=== PATIENT | male | born 1975 | race Caucasian/White ===

== ENCOUNTER 2017-06-11 11:18 | Emergency (ER) | payer MEDICARE ==
[2017-06-11] MEDS ORDERED: Sodium Chloride 0.9% 1000 ML 1,000 ML ONE (11:37)
[2017-06-11] MEDS ORDERED: Lactated Ringers 1,000 ML IV ONE ×5 (11:37→13:51)
[2017-06-11] MEDS ORDERED: Sodium Chloride 0.9% 1000 ML 1,000 ML IV STA (11:41)
--- NOTE | 2017-06-11 11:50 | ERPHSYRPT ---
- History of Present Illness Time Seen by Provider: 06/11/17 11:23 Source: patient, family () Physician History: CC: vomiting Hx: 42 y/o IDDM pt of Dr Jaiden Juarez. He has couple day hx of vomiting. No abd pain or diarrhea. No fever. Flu like symptoms last week. He has chest pain after vomiting. No DKA for several years. Sugars have been running high. Vomiting is severe. He has malaise. Severity: severe Allergies/Adverse Reactions: No Known Drug Allergies Allergy (Unverified 06/11/17 11:48) - Review of Systems Constitutional: Fatigue, Malaise, Weakness, No Fever, No Chills Eyes: No Symptoms Respiratory: No Cough, No Dyspnea Cardiac: Chest Pain, No Syncope Abdominal/Gastrointestinal: Nausea, Vomiting, No Abdominal Pain, No Diarrhea Genitourinary Symptoms: No Dysuria Musculoskeletal: Back Pain (chronic) Skin: No Rash Neurological: No Headache All Other Systems: Reviewed and Negative - Past Medical History Pertinent Past Medical History: Yes Endocrine Medical History: Diabetes Type I Other Medical History: Chronic Back Pain. Diabetic Neuropathy - Past Surgical History Past Surgical History: Yes Musculoskeletal: Other (Back) - Social History Patient Lives Alone: No (here with ) - Nursing Vital Signs Nursing Vital Signs: Initial Vital Signs Temperature 97.8 F 06/11/17 11:23 Pulse Rate 126 H 06/11/17 11:23 Respiratory Rate 22 06/11/17 11:23 Blood Pressure 151/84 06/11/17 11:23 O2 Sat by Pulse Oximetry 100 06/11/17 11:23 Pain Scale Pain Intensity 2 - Physical Exam General Appearance: alert, other (ill appearing with Kussmaul breathing) Ears, Nose, Throat Exam: dry mucous membranes Neck Exam: normal inspection, non-tender, supple Respiratory Exam: normal breath sounds Cardiovascular Exam: regular rate/rhythm, tachycardia, No murmur Gastrointestinal/Abdomen Exam: soft, No tenderness, No distention, No mass, No guarding Male Genitalia Exam: normal genitalia, No hernia, No testicular tenderness Back Exam: normal inspection Extremity Exam: normal inspection, normal range of motion, No calf tenderness, No pedal edema Neurologic Exam: alert, oriented x 3, cooperative, scale mechanic II-XII nml as tested, sensation nml, No motor deficits Skin Exam: warm, dry, pale, No rash SpO2 Interpretation: normal SpO2: 100 Oxygen Delivery: Room Air - Course Nursing assessment & vital signs reviewed: Yes EKG Interpreted by Me: RATE (131), Sinus Tach, NORMAL AXIS, Other (peaked T waves, Nonspecific changes) - Radiology Exams cxr X-ray Interpretation: Teleradiologist Report, Negative Ordered Tests: Active Orders 24 hr Category Date Time Status ACCUCHECK [Accucheck] STAT Care 06/11/17 13:12 Active Gear Shaver Set Up Operator STAT Care 06/11/17 11:41 Active Clean Catch Urine Specimen STAT Care 06/11/17 11:41 Active EKG-ER Only STAT Care 06/11/17 11:41 Active IV Insertion STAT Care 06/11/17 11:41 Active IV Insertion-2nd Peripheral STAT Care 06/11/17 11:41 Active Pulse Oximetry (ED) STAT Care 06/11/17 11:41 Active CHEST 1 VIEW (PORTABLE) Stat Exams 06/11/17 11:42 Completed BLOOD CULTURE Stat Lab 06/11/17 12:15 Received CBC W DIFF Stat Lab 06/11/17 11:40 Completed CMP Stat Lab 06/11/17 11:40 Completed Glucose,Critical Care Urgent Lab 06/11/17 11:41 Results Lactic Acid Urgent Lab 06/11/17 11:41 Results MAGNESIUM Stat Lab 06/11/17 11:40 Completed Manual Differential NC Stat Lab 06/11/17 11:40 Completed TROPONIN Q3H Lab 06/11/17 11:40 Completed TROPONIN Q3H Lab 06/11/17 14:45 Ordered TROPONIN Q3H Lab 06/11/17 17:45 Ordered TROPONIN Q3H Lab 06/11/17 20:45 Ordered TROPONIN Q3H Lab 06/11/17 23:45 Ordered UA W/ MICROSCOPIC Stat Lab 06/11/17 11:41 Completed VENOUS BLOOD GAS Urgent Lab 06/11/17 11:41 Results Medication Summary Generic Name Dose Route Start Last Admin Trade Name Freq PRN Reason Stop Dose Admin Insulin Human Regular 100 101 mls @ 8.08 mls/hr 06/11/17 12:00 06/11/17 12:07 units/ Sodium Chloride IV 07/11/17 11:59 8 units/hr .[id number] JIMBO 8.08 mls/hr 8 UNITS/HR Administration Lactated Ringer's 1,000 mls @ 150 mls/hr 06/11/17 13:30 Lactated Ringers IV 07/11/17 13:29 .[id number] JIMBO Discontinued Medications Generic Name Dose Route Start Last Admin Trade Name Marquita PRN Reason Stop Dose Admin Hydromorphone HCl 0.5 mg 06/11/17 11:56 06/11/17 12:01 Hydromorphone 1 Mg/Ml Ampule IV 06/11/17 11:57 0.5 mg STAT ONE Administration Hydromorphone HCl Confirm 06/11/17 12:00 Hydromorphone 1 Mg/Ml Ampule Administered 06/11/17 12:01 Dose 1 mg .ROUTE .STK-MED ONE Sodium Chloride Confirm 06/11/17 11:37 Sodium Chloride 0.9% 1000 Ml Administered 06/11/17 11:38 Dose 1,000 mls @ ud .ROUTE .STK-MED ONE Lactated Ringer's Confirm 06/11/17 11:37 Lactated Ringers Administered 06/11/17 11:38 Dose 1,000 mls @ ud IV .STK-MED ONE Lactated Ringer's 1,000 mls @ 999 mls/hr 06/11/17 11:42 06/11/17 12:01 Lactated Ringers IV 06/11/17 12:42 999 mls/hr .Q1H1M ONE Administration Sodium Chloride 1,000 mls @ 999 mls/hr 06/11/17 11:41 06/11/17 12:01 Sodium Chloride 0.9% 1000 Ml IV 06/11/17 12:41 999 mls/hr .Q1H1M STA Administration Lactated Ringer's 1,000 mls @ 999 mls/hr 06/11/17 11:54 06/11/17 12:22 Lactated Ringers IV 06/11/17 12:54 999 mls/hr .Q1H1M ONE Administration Ceftriaxone Sodium/Dextrose 1 g in 50 mls @ 100 mls/hr 06/11/17 11:54 12:00 Rocephin 1 Gm-D5w 50 Ml Bag IV 06/11/17 12:23 100 mls/hr STAT STA Administration Lactated Ringer's Confirm 06/11/17 12:00 Lactated Ringers Administered 06/11/17 12:01 Dose 1,000 mls @ ud IV .STK-MED ONE Ceftriaxone Sodium/Dextrose Confirm 06/11/17 12:00 Rocephin 1 Gm-D5w 50 Ml Bag Administered 06/11/17 12:01 Dose 1 g in 50 mls @ ud IV .STK-MED ONE Lab/Rad Data: Laboratory Result Diagrams 06/11/17 11:40 06/11/17 11:40 Laboratory Results 06/11/17 06/11/17 06/11/17 Range/Units 11:41 11:41 11:40 WBC (4.0-10.5) K/mm3 RBC (4.1-5.6) M/mm3 Hgb (12.5-18.0) gm/dl Hct (42-50) % MCV (78-100) fl MCH (26-32) pg MCHC (32-36) g/dl RDW (11.5-14.0) % Plt Count (150-450) K/mm3 MPV (6-9.5) fl Segmented Neutrophils (36.-66.) % Lymphocytes (Manual) (24-44) % Monocytes (Manual) (0.0-12.0) % Eosinophils (Manual) (0.00-3.0) % Differential Comment Atypical Lymphocytes % Platelet Estimate (NORMAL) Poikilocytosis VBG pH 7.02 L* (7.32-7.42) VBG pCO2 at Pat Temp 38 L (42-55) mm/Hg VBG HCO3 9.8 L* (22-28) meq/L VBG O2 Sat (Sarah) 36.2 L (95-100) VBG Base Excess -20.7 L (-2.0-2.0) VBG Hemoglobin 17.2 VBG Carboxyhemoglobin 1.5 (0.0-6.9) % T HGB POC Potassium 6.1 H* (3.5-5.1) Sodium (136-145) mEq/L Potassium (3.5-5.1) mEq/L Chloride (98-107) mEq/L Carbon Dioxide (21-32) mEq/L Anion Gap (5-15) MEQ/L BUN (9-20) mg/dL Creatinine (0.55-1.30) mg/dl Estimated GFR ML/MIN Glucose 668 H* (70-110) MG/DL Lactic Acid 5.1 H (0.4-2.0) Calcium (8.5-10.1) mg/dL Magnesium (1.8-2.4) mg/dL Total Bilirubin (0.2-1.0) mg/dL AST (15-37) U/L ALT (12-78) U/L Alkaline Phosphatase (46-116) U/L Troponin I < 0.017 (0.000-0.056) ng/ml Serum Total Protein (6.4-8.2) gm/dL Albumin (3.4-5.0) g/dL Ur Collection Type VOID Urine Color YELLOW (YELLOW) Urine Appearance CLEAR (CLEAR) Urine pH 5.0 (5-6) Ur Specific [place] 1.025 (1.005-1.025) Urine Protein TRACE (Negative) Urine Ketones LARGE (NEGATIVE) Urine Blood NEGATIVE (0-5) Robert/ul Urine Nitrite NEGATIVE (NEGATIVE) Urine Bilirubin NEGATIVE (NEGATIVE) Urine Urobilinogen NORMAL (0-1) mg/dL Ur Leukocyte Esterase NEGATIVE (NEGATIVE) Urine Microscopic RBC 0-2 (0-2) /HPF Ur Epithelial Cells RARE (FEW) /HPF Urine Bacteria RARE (NEGATIVE) /HPF Urine Culture Reflexed NO (NO) Urine Glucose 1000 (NEGATIVE) mg/dL Specimen Received 06/11/17 1145 06/11/17 06/11/17 Range/Units 11:40 11:40 WBC 23.4 H (4.0-10.5) K/mm3 RBC 5.60 (4.1-5.6) M/mm3 Hgb 16.9 (12.5-18.0) gm/dl Hct 49.6 (42-50) % MCV 88.6 (78-100) fl MCH 30.2 (26-32) pg MCHC 34.1 (32-36) g/dl RDW 13.4 (11.5-14.0) % Plt Count 551 H (150-450) K/mm3 MPV 10.2 H (6-9.5) fl Segmented Neutrophils 81 H (36.-66.) % Lymphocytes (Manual) 14 L (24-44) % Monocytes (Manual) 2 (0.0-12.0) % Eosinophils (Manual) 1 (0.00-3.0) % Differential Comment ABNORMAL Atypical Lymphocytes 2 % Platelet Estimate INCREASED (NORMAL) Poikilocytosis 1+ VBG pH (7.32-7.42) VBG pCO2 at Pat Temp (42-55) mm/Hg VBG HCO3 (22-28) meq/L VBG O2 Sat (Sarah) (95-100) VBG Base Excess (-2.0-2.0) VBG Hemoglobin VBG Carboxyhemoglobin (0.0-6.9) % T HGB POC Potassium (3.5-5.1) Sodium 131 L (136-145) mEq/L Potassium 5.4 H (3.5-5.1) mEq/L Chloride 90 L (98-107) mEq/L Carbon Dioxide 9.8 L* (21-32) mEq/L Anion Gap 36.5 H (5-15) MEQ/L BUN 20 (9-20) mg/dL Creatinine 2.01 H (0.55-1.30) mg/dl Estimated GFR 39 ML/MIN Glucose 615 H* (70-110) MG/DL Lactic Acid (0.4-2.0) Calcium 10.7 H (8.5-10.1) mg/dL Magnesium 1.7 L (1.8-2.4) mg/dL Total Bilirubin 0.60 (0.2-1.0) mg/dL AST 22 (15-37) U/L ALT 45 (12-78) U/L Alkaline Phosphatase 145 H (46-116) U/L Troponin I (0.000-0.056) ng/ml Serum Total Protein 8.9 H (6.4-8.2) gm/dL Albumin 5.0 (3.4-5.0) g/dL Ur Collection Type Urine Color (YELLOW) Urine Appearance (CLEAR) Urine pH (5-6) Ur Specific [place] (1.005-1.025) Urine Protein (Negative) Urine Ketones (NEGATIVE) Urine Blood (0-5) Robert/ul Urine Nitrite (NEGATIVE) Urine Bilirubin (NEGATIVE) Urine Urobilinogen (0-1) mg/dL Ur Leukocyte Esterase (NEGATIVE) Urine Microscopic RBC (0-2) /HPF Ur Epithelial Cells (FEW) /HPF Urine Bacteria (NEGATIVE) /HPF Urine Culture Reflexed (NO) Urine Glucose (NEGATIVE) mg/dL Specimen Received - Progress Progress Note: 06/11/17 11:50 He appears to have DKA. 2 PIV started. IV crystalloid bolus in progress. Labs sent. Explained DKA to pt and who understand severity of condition. 06/11/17 13:05 3L crystalloid given. Insulin gtt started. Cultures sent and rocephin coverage given. Called DR Sharpe() for admission but blood gas and lactic acid analyzer is down and those tests are not available so she advised to transfer. Pt prefers [facility] where he usually is admitted and he requested [facility] Dr Jaiden Juarez. Called [place] one call. 06/11/17 13:[address] Kramer who accepts pt in transfer to [facility]. Will recheck BMP prior to leaving for transfer. Counseled pt/family regarding: lab results, diagnosis, need for follow-up, rad results - Departure Time of Disposition: 13:31 Departure Disposition: Transfer ([place] ICU) Clinical Impression: DKA (diabetic ketoacidoses) Condition: Serious Critical Care Time: Yes Critical Care Time(excluding separately billable procedures): 30-74 minutes Referrals: JAIDEN JUAREZ [Primary Care Provider] -
[2017-06-11 11:51] LABS: Granulocyte Absolute (ANC) 17.71 (1.4-6.9); Hematocrit 49.6 % (42-50); Hemoglobin 16.9 gm/dl (12.5-18.0); Mean Cell Volume 88.6 fl (78-100); Mean Corpuscular Hemoglobin 30.2 pg (26-32); Mean Corpuscular Hgb Concent. 34.1 g/dl (32-36); Mean Platelet Volume 10.2 fl (6-9.5); Platelet Count 551 K/mm3 (150-450); Red Cell Distribution Width 13.4 % (11.5-14.0); White Blood Count 23.4 K/mm3 (4.0-10.5)
[2017-06-11] MEDS ORDERED: ROCEPHIN 1 Gm-D5w 50 ml Bag** 1 G/50 ML IVPB IV STA (11:54)
[2017-06-11 11:55] LABS: Lactic Acid 5.1 (0.4-2.0); VBG BASE EXCESS -20.7 (-2.0-2.0); VBG CARBOXYHEMOGLOBIN 1.5 % T HGB (0.0-6.9); VBG HCO3- 9.8 meq/L (22-28); VBG HEMOGLOBIN 17.2; VBG O2 SATURATION 36.2 (95-100); VBG PCO2 38 mm/Hg (42-55); VBG pH 7.02 (7.32-7.42)
[2017-06-11 11:56] LABS: VBG POTASSIUM 6.1 (3.5-5.1)
[2017-06-11] MEDS ORDERED: Hydromorphone 1 mg/ml Ampule IV ONE (11:56)
[2017-06-11 11:57] LABS: Glucose,Critical Care 668 (70-110)
[2017-06-11 11:59] LABS: Appearance CLEAR (CLEAR)
[2017-06-11] MEDS ORDERED: Hydromorphone 1 mg/ml Ampule ONE (12:00)
[2017-06-11] MEDS ORDERED: NOVOLIN R INSULIN (FOR DRIPS)** 100 UNITS in Sodium Chloride 0.9% 100 ML IVPB 100 ML IV SCH (12:00)
[2017-06-11] MEDS ORDERED: ROCEPHIN 1 Gm-D5w 50 ml Bag** 1 G/50 ML IVPB IV ONE (12:00)
[2017-06-11 12:02] LABS: Bilirubin NEGATIVE (NEGATIVE); Blood NEGATIVE Ery/ul (0-5); Glucose 1000 mg/dL (NEGATIVE); Ketones LARGE (NEGATIVE); Leukocyte Esterase NEGATIVE (NEGATIVE); Nitrite NEGATIVE (NEGATIVE); Protein,Urine Dip TRACE (Negative); Specific Gravity 1.025 (1.005-1.025); Urobilinogen NORMAL mg/dL (0-1)
[2017-06-11 12:09] LABS: ATYPICAL LYMPHS 2 %; Eosinophil 1 % (0.00-3.0); Lymphocytes 14 % (24-44); Monocyte 2 % (0.0-12.0); Neutrophils 81 % (36.-66.); Total Cells Counted 100
[2017-06-11 12:10] LABS: Bacteria RARE /HPF (NEGATIVE); Epithelial Cells RARE /HPF (FEW)
[2017-06-11 12:11] LABS: Platelet Estimate INCREASED (NORMAL); Poikilocytosis 1+
--- NOTE | 2017-06-11 12:12 | XRAY ---
Indication: Chest pain and vomiting. Comparison: March 27, 2017. Portable chest demonstrates normal heart, lungs, and bony thorax.
[2017-06-11 12:25] LABS: ANION GAP 36.5 MEQ/L (5-15); BILIRUBIN,TOTAL 0.6 mg/dL (0.2-1.0); Calcium 10.7 mg/dL (8.5-10.1); Creatinine 1 2.01 mg/dl (0.55-1.30); MAGNESIUM 1.7 mg/dL (1.8-2.4); Potassium 5.4 mEq/L (3.5-5.1); Total Protein 8.9 gm/dL (6.4-8.2)
[2017-06-11 12:40] LABS: Carbon Dioxide 9.8 mEq/L (21-32)
[2017-06-11 13:30] VITALS: BP 144/79; PULSE 120
[2017-06-11] MEDS ORDERED: Lactated Ringers 1,000 ML IV SCH (13:30)
[2017-06-11 13:32] VITALS: O2SAT 100
[2017-06-11] MEDS ORDERED: Nicoderm CQ 21 MG TOP ONE (13:50)
[2017-06-11 14:24] LABS: ANION GAP 32.6 MEQ/L (5-15); BLOOD UREA NITROGEN 19 mg/dL (9-20); CHLORIDE 96 mEq/L (98-107); Calcium 9.6 mg/dL (8.5-10.1); Creatinine 1 1.58 mg/dl (0.55-1.30); EST GLOMERULAR FILTRATION RATE 52 ML/MIN; Glucose 415 MG/DL (70-110); SODIUM 132 mEq/L (136-145)
[2017-06-11 14:34] LABS: Carbon Dioxide 8.4 mEq/L (21-32); TROPONIN < 0.017 ng/ml (0.000-0.056)
== END 2017-06-11 15:10 | disposition short-term general hospital (02) ==
LOC: ED 11:18
DX: E11.10 Type 2 diabetes mellitus with ketoacidosis without coma (principal); Z79.4 Long term (current) use of insulin
CPT/HCPCS: 36000; 36415; 71045; 80048; 80053; 81000; 82805; 82947; 82962; 83605; 83735; 84484; 85025; 87040; 93005; 93041; 96360; 96361; 96365; 96367; 96374; 99285; J0696; J1170; J1815; A9270-GY